=== PATIENT | male | born 1990 | race Caucasian/White ===

== ENCOUNTER 2016-12-07 14:22 | Emergency (ER) | payer OTHER ==
[2016-12-07 14:42] VITALS: BP 125/84; PULSE 87; RESP 16; TEMP 98.8; O2SAT 97
[2016-12-07] MEDS ORDERED: LIDOCAINE BUFFERED 1% 50 ML SOL SC ONE (15:08)
[2016-12-07] MEDS ORDERED: LIDOCAINE HCL 1% MPF SOL ONE (15:09)
[2016-12-07] MEDS ORDERED: BACITRACIN 500 U/GM OIN TOP ONE ×2 (15:37→15:38)
== END 2016-12-07 15:40 | disposition home or self-care (01) | DRG 605 ==
LOC: ED 14:22
DX: S61.012A Laceration without foreign body of left thumb without damage to nail, initial encounter (principal); W26.0XXA Contact with knife, initial encounter; Y99.0 Civilian activity done for income or pay
CPT/HCPCS: 99283; J2001